=== PATIENT | male | born 1990 | race Caucasian/White ===

== ENCOUNTER 2016-05-10 11:07 | Emergency (ER) | payer SELFPAY ==
[~2016-05-10] VITALS: Ht 180.3 cm; Wt 86.4 kg
[~2016-05-10 11:07] MED LIST: ALBU18002 INH; CHLOTAB77 PO
[2016-05-10 11:18] VITALS: BP 133/78; PULSE 77; TEMP 36.8; O2SAT 97; Ht 180.3 cm; Wt 86.4 kg
[2016-05-10] MEDS ORDERED: KETOROLAC TROMETHAMINE 60 MG/2 ML VIAL IM STA (11:50)
--- NOTE | 2016-05-10 11:53 | EMERGENCY ROOM VISIT NOTE ---
ED Visit Note First contact with patient: 11:42 CHIEF COMPLAINT: Low back pain HISTORY OF PRESENT ILLNESS: This 25-year-old male patient presents to the emergency department via private vehicle complaining of pain in the low back which began yesterday. Patient states that he works at the [employer], and while moving/lifting a 15 gallon barrel of bleach he notes that he was lifting with his legs could tell that he had injured his back like he had in the past. He notes that he experiences these acute exacerbations and typically receives relief when he comes here for a Toradol injection. The patient states he has a chronic history of back pain, and at times his back will "give out". The pain was gradual in onset, is now constant and worse with movement. The patient notes the pain as diffuse across the low back and a 8/10. The patient denies any loss of control of their bowel or bladder functions. There has been no leg numbness or weakness, and no change in sensation. No nausea or vomiting or abdominal pain. No chest pain or shortness of breath. The patient has had prior back injuries. No dysuria or increased urinary frequency. REVIEW OF SYSTEMS: A review of systems was performed with positives and pertinent negatives listed in the history of present illness. All other systems were reviewed and are negative. ALLERGIES: No known allergies MEDICATIONS: None reported PMH: Low back pain, asthma, bronchitis. SOCIAL HISTORY: Patient is currently employed at the [employer], and lives with mother. PHYSICAL EXAM: VITALS: Vitals are noted on the nurse's note and reviewed by myself. Vital signs stable. GENERAL: 25-year-old male, in no acute distress, nondiaphoretic, well-developed well-nourished. SKIN: The skin was without rashes, erythema, edema, or bruising. Capillary refill less than 2 seconds. NECK: Supple without nuchal rigidity. No cervical spine tenderness. No paraspinous muscle tenderness. HEART: Regular rate and rhythm without murmurs gallops or rubs. LUNGS: Clear to auscultation bilaterally without wheezes, rales or rhonchi. ABDOMEN: Positive bowel sounds x 4. Normal tympanic percussion. Soft, nontender, without masses or organomegaly. Gamble sign negative. MUSCULOSKELETAL: No muscle atrophy, erythema, or edema noted of the back. There is tenderness over the lumbar spinous processes and diffuse lumbar region into the paraspinous musculature. There is tenderness over the paraspinous muscles of the lumbar spine. There is no tenderness over the thoracic spine or paraspinous muscles. There are minimal muscle spasms present in the lumbar spine. The patient is slow to move around with maximum tenderness with palpation of the lumbar spine. Negative straight leg raise test. NEURO: Patient was alert and oriented to person place and time. Normal sensation to light and sharp touch. Deep tendon reflexes 2+ in the lower extremities. Vascular intact in the extremities. Strength 5/5 and equal in the bilateral lower extremities. EMERGENCY DEPARTMENT COURSE: Patient was seen and evaluated as above. Patient was offered imaging, but threw joint decision making this was declined. I do believe the patient will benefit from a Toradol injection. He likely has irritation in the lumbar spine and paraspinous musculature secondary to heavy lifting yesterday. He is otherwise healthy. He has had similar presentations in the past. He was given 60 mg IM of Toradol. He was educated upon follow-up from today's visit, particularly with the workman compensation individual, as well as CV IM. I do not suspect any emergent cause of the patient's etiologies at this time. Patient was educated upon worrisome symptoms in which to return, had questions answered prior to discharge, and was discharged home in good condition. In the evaluation and treatment of this patient the following differential diagnoses were entertained: Lumbar strain, cauda equina syndrome, acute abdominal etiologies, among others. Problem List Medical Problems: (1) ASTHMA, UNSPECIFIED Status: Chronic (2) ATTN DEFIC NONHYPERACT Status: Chronic (3) BIPOLAR DISORDER, UNSPECIFIED Status: Chronic (4) FAM HX-DIABETES MELLITUS Status: Chronic (5) FAMILY HISTORY OF OTHER CARDIOVASCULAR DISEASES Status: Chronic (6) FAMILY HX-CONDITION NEC Status: Chronic (7) FAMILY HX-MALIGNANCY NOS Status: Chronic (8) HYPERTENSION NOS Status: Chronic (9) OBSESSIVE-COMPULSIVE PERSONALITY DISORDER Status: Chronic (10) PNEUMONIA, ORGANISM NOS Status: Resolved (11) TOBACCO USE DISORDER Status: Chronic (12) TOURETTE'S DISORDER Status: Chronic Current/Historical Medications No Active Prescriptions or Reported Meds Allergies Coded Allergies: No Known Allergies (Unverified , 05/10/16) Vital Signs Date Time Temp Pulse Resp B/P Pulse Ox O2 Delivery O2 Flow Rate FiO2 05/10/16 11:18 36.8 77 20 133/78 97 Room Air Medications Administered Medications (Trade) Dose Ordered Sig/Jose Route Start Time Stop Time Status Last Admin Dose Admin Ketorolac Tromethamine (Toradol Inj) 60 mg NOW STAT IM 05/10/16 11:50 05/10/16 11:51 DC 05/10/16 11:56 60 MG Departure Information Impression Primary Impression: Strain of lumbar region Dispostion Home / Self-Care Condition GOOD Prescriptions No Active Prescriptions or Reported Meds Referrals No Doctor, Assigned (PCP) Patient Instructions [facility] Additional Instructions You have been treated in the Emergency Department for Back Pain. For pain control, you can use the following [id number] medicines (if >12 yo): - Regular strength (325mg/tab) Tylenol (acetaminophen) 2 tabs every 4-6 hours as needed. Do not exceed 12 tablets in a 24 hour period. Avoid taking more than 4 grams (4000 mg) of Tylenol per day. This includes any other sources of acetaminophen you may take on a regular basis. - Regular strength (200 mg/tab) Advil (ibuprofen) 1-2 tabs every 4-6 hours as needed. Do not exceed a dose of 3200 mg per day. If this is an acute injury, ice can be applied to the area of pain for the first 3 days to help decrease pain and inflammation. After the first 3 days, a heating pad can be used over the area for continued soothing relief. You should schedule a follow-up appointment in 2-3 days with your Primary Care Provider for further evaluation and treatment of your back pain. Please follow-up with the Workmen's Compensation individual regarding your injuries. Return to the Emergency Department if your current symptoms worsen despite treatment course outlined above, or if you develop any of the following symptoms : intractable pain despite aforementioned treatment course, loss of control of your bowel or bladder, numbness or tingling in your groin, or development of a fever. Please return to the emergency department with any new/concerning symptoms.
== END 2016-05-10 12:02 | disposition home or self-care (01) ==
LOC: C.EDB 11:08 → C.EDD 12:02
DX: S39.012A Strain of muscle, fascia and tendon of lower back, initial encounter (principal); X58.XXXA Exposure to other specified factors, initial encounter; J45.909 Unspecified asthma, uncomplicated; M54.5 Low back pain; G89.29 Other chronic pain; F31.9 Bipolar disorder, unspecified; F90.9 Attention-deficit hyperactivity disorder, unspecified type; I10 Essential (primary) hypertension; F95.2 Tourette's disorder; F42.9 Obsessive-compulsive disorder, unspecified; Z83.3 Family history of diabetes mellitus; Z80.9 Family history of malignant neoplasm, unspecified